=== PATIENT | male | born 2000 | race Two or more races ===

== ENCOUNTER → 2025-05-02 | Emergency (ER) | payer OTHER ==
[~2025-05-02] VITALS: Ht 167.6 cm; Wt 83.9 kg
[~2025-05-02] MED LIST: CEFTRIAXONE SODIUM 1,000 MG VIAL IM ONE; CEFTRIAXONE SODIUM 1,000 MG VIAL ONE; DIPHTH,PERTUSS(ACELL),TET VAC 0.5 ML SYRINGE IM ONE; LIDOCAINE HCL 1% 10ML VIAL ONE; TETANUS & DIPHTHERIA TOX,ADULT 0.5 ML VIAL IM ONE
== END | disposition home or self-care (01) ==
LOC: ER 16:44
DX: S61.210A Laceration without foreign body of right index finger without damage to nail, initial encounter (principal); W26.0XXA Contact with knife, initial encounter; Y93.89 Activity, other specified; Y92.89 Other specified places as the place of occurrence of the external cause; Y99.9 Unspecified external cause status; Z91.013 Allergy to seafood